=== PATIENT | female | born 1985 | race Caucasian/White ===

== ENCOUNTER 2017-01-15 14:40 | Emergency (ER) | payer SELFPAY ==
[~2017-01-15] VITALS: Ht 162.6 cm; Wt 63.6 kg
[2017-01-15] MEDS ORDERED: DILANTIN30 MG PO (14:47)
[2017-01-15] MEDS ORDERED: ALPRAZOLAM0.25 M1 PO (14:47)
[2017-01-15] MEDS ORDERED: PREDNISONE20 M1 PO (15:28)
[2017-01-15 15:44] VITALS: BP 128/78
== END 2017-01-15 15:45 | disposition home or self-care (01) ==
LOC: ED 14:40
DX: L98.9 Disorder of the skin and subcutaneous tissue, unspecified (principal); R22.0 Localized swelling, mass and lump, head; G40.909 Epilepsy, unspecified, not intractable, without status epilepticus